=== PATIENT | female | born 1985 | race Caucasian/White ===

== ENCOUNTER 2020-01-18 13:03 | Outpatient (REF) | payer OTHER, SELFPAY ==
--- NOTE | 2020-01-18 09:30 | PAPFT_PTH ---
PATIENT: Karen Anne LOC: [facility]#:[id number] AGE/SX: 34/F ROOM: RE01/18/[address]: Kirstie Mcguire : 1985 BED: DIS: 01/18/2020 SPEC #: [id number] RECD: 01/19/20 12:48 STATUS: BRIAN REQ #: [id number] TAMI: 01/18/20 09:[address]: Kirstie Mcguire DEPT: [facility] Cytology RECD BY: Alissa Lei ENTERED: 01/19/20 12:48 SP TYPE: PAPFT OTHR DR: Unknown,Unknown Tissues: 1 - CX/ENDOCX FOR PAP SMEARS Procedures: PAP THIN PREP/[facility] Screening HPV DNA PROBE Comments: [id number] ([id number] [facility]) (CHLAMYDIA/GC)
[2020-01-23 11:52] LABS: Chlamydia Result Negative (Negative); GC Result Negative (Negative)
== END 2020-01-18 13:23 ==
LOC: NCHCN 13:03
PROVIDERS: Visit Provider Nurse Practitioner Family
DX: Z00.00 Encounter for general adult medical examination without abnormal findings (principal); Z12.4 Encounter for screening for malignant neoplasm of cervix; Z01.419 Encounter for gynecological examination (general) (routine) without abnormal findings; Z11.51 Encounter for screening for human papillomavirus (HPV)
CPT/HCPCS: 87491; 87591; 88142; 87624

== ENCOUNTER 2022-04-01 14:59 | Outpatient (REF) | payer BC, SELFPAY ==
[2022-04-01 21:33] LABS: HCT 44.6 % (36.0-46.0); HGB 14.6 g/dL (11.2-15.7); MCH 29.4 pg (27.0-33.0); MCHC 32.7 % (32.0-36.0); MCV 90 fL (80-95); MPV 11.7 fL (8.0-11.0); Platelet Count 293 10^3/uL (130-400); RBC 4.96 10^6/uL (3.93-5.22); RDW 11.9 % (11.7-14.6); RDW-SD 39.1 fL; WBC 5.64 10^3/uL (4.4-10.8)
[2022-04-01 22:04] LABS: ALT 15 U/L (14-59); AST 14 U/L (15-37); Albumin 4.2 g/dL (3.4-5.0); Alkaline Phosphatase 70 U/L (46-116); Anion Gap 7.4 mmol/L (3-11); BUN 9 mg/dL (7-18); Bilirubin, Total 0.4 mg/dL (0.2-1.0); CO2 29.6 mmol/L (21.0-32.0); CREATININE 0.7 mg/dL (0.55-1.02); Calcium 9.5 mg/dL (8.5-10.1); Calculated LDL 102 mg/dL (<100); Chloride 102 mmol/L (98-107); Cholesterol 212 mg/dL (<200); Estimated GFR 114.16 (mL/min/1.73m2); Glucose 83 mg/dL (74-106); HDL Cholesterol 86 mg/dL (40-60); Potassium 3.9 mmol/L (3.5-5.1); Sodium 139 mmol/L (136-145); Total Protein 7.7 g/dL (6.4-8.2); Triglyceride 120 mg/dL (<150)
[2022-04-01 22:32] LABS: Hemoglobin A1C 5.1 % (<5.7)
== END 2022-04-01 15:00 | disposition home or self-care (01) ==
LOC: NCHCN 14:59
PROVIDERS: Visit Provider Nurse Practitioner Family
DX: Z00.00 Encounter for general adult medical examination without abnormal findings (principal)
CPT/HCPCS: 80053; 80061; 85027; 83036

== ENCOUNTER 2022-09-22 19:32 | Outpatient (CLI) | payer BC, SELFPAY ==
--- NOTE | 2022-09-22 | DI.RAD_ITS ---
Exam(s) XR FINGER LT RING EXAM: XR FINGER LT RING EXAM DATE/TIME: CLINICAL HISTORY: pain in left finger. TECHNIQUE: 2D digital imaging was performed of the left finger. Three views were obtained. PA/AP, oblique, and lateral views were obtained. COMPARISON: None. FINDINGS: BONES: There is an acute oblique fracture through the proximal aspect of the proximal phalanx of the 4th finger. 2-3 mm lateral displacement of the distal fracture is noted. On the oblique images a qu estion of a nondisplaced fracture involving the terminal tuft of the 5th finger. No bony destructive lesion is seen. JOINTS: No dislocation is present. SOFT TISSUE: Soft tissue swelling of the 4th finger. IMPRESSION: 1. Acute mildly displaced fracture of the proximal phalanx of the 4th finger. 2. Question of a nondisplaced fracture of the terminal tuft of the 5th finger. DATA REPOSITORY: RADIATION DOSE DELIVERED:
--- NOTE | 2022-09-22 20:28 | DI.VRAD_ITS ---
PROCEDURE INFORMATION: Exam: XR Left Finger(s) Exam date and time: 09/22/2022 7:47 PM Age: 36 years old Clinical indication: Finger(s); Left; Patient HX: L ring finger pain, caught in dog leash TECHNIQUE: Imaging protocol: Radiologic exam of the left fingers. Views: Minimum 2 views. COMPARISON: No relevant prior studies available. FINDINGS: Bones/joints: There is an oblique minimally displaced fracture through the proximal aspect of the 4th proximal phalanx, with approximately 2 mm distraction and lateral displacement of the distal fracture fragment. No healing callus formation is identified. There are no subluxations. Cannot exclude oblique nondisplaced fracture through the tuft of the 5th distal phalanx on the oblique view. The joint spaces are maintained without degenerative changes. Osseous mineralization is normal. There are no inflammatory osseous erosive changes. Soft tissues: There is mild soft tissue swelling of the proximal aspect of the 4th digit, likely posttraumatic. IMPRESSION: 1. Minimally displaced fracture of the 4th proximal phalanx, as described above. 2. Cannot exclude nondisplaced fracture through the tuft of the 5th distal phalanx. Recommend clinical correlation for focal tenderness. Dictated and Authenticated by: Andi Manuel MD. Ordering:FLOWER FERNANDEZ MD
== END 2022-09-22 19:52 ==
PROVIDERS: Visit Provider Nurse Practitioner Family
DX: S62.616A Displaced fracture of proximal phalanx of right little finger, initial encounter for closed fracture (principal); X58.XXXA Exposure to other specified factors, initial encounter
CPT/HCPCS: 73140

== ENCOUNTER 2022-10-07 12:03 | Outpatient (CLI) | payer BC, SELFPAY ==
--- NOTE | 2022-10-07 11:30 | DI.RAD_ITS ---
Exam(s) XR FINGER LT RING EXAM: XR FINGER LT RING EXAM DATE/TIME: CLINICAL HISTORY: FX F/U. TECHNIQUE: 2D digital imaging was performed of the left finger. Three views were obtained. PA/AP, oblique, and lateral views were obtained. COMPARISON: Comparison is made with prior examinations. FINDINGS: BONES: There is no change in alignment of the fracture involving the proximal phalanx of the left 4th finger. No bony destructive lesion is seen. No new fracture is identified. JOINTS: No dislocation is present. SOFT TISSUE: Normal. IMPRESSION: Stable fracture of the proximal phalanx of the 4th finger. DATA REPOSITORY: RADIATION DOSE DELIVERED:
== END 2022-10-07 12:04 | disposition home or self-care (01) ==
LOC: DIORS 12:03
PROVIDERS: PCP Nurse Practitioner Family; Visit Provider Student in an Organized Health Care Education/Training Program
DX: S62.615A Displaced fracture of proximal phalanx of left ring finger, initial encounter for closed fracture (principal); X58.XXXA Exposure to other specified factors, initial encounter
CPT/HCPCS: 73140

== ENCOUNTER 2022-10-14 14:35 | Outpatient (CLI) | payer BC, SELFPAY ==
--- NOTE | 2022-10-14 14:30 | DI.RAD_ITS ---
Exam(s) XR HAND LT LIMITED EXAM: XR HAND LT LIMITED INDICATION: proximal fx f/u. COMPARISON: CR XR FINGER LT RING from 10/07/2022 TECHNIQUE: 2D digital imaging was performed. Two views. FINDINGS: There has been no change in the alignment of the fracture of proximal phalanx of the 4th finger. No new abnormalities are seen. DATA REPOSITORY: RADIATION DOSE DELIVERED:
== END 2022-10-14 14:36 | disposition home or self-care (01) ==
LOC: DIORS 14:36
PROVIDERS: PCP Nurse Practitioner Family; Referring Provider Nurse Practitioner Family; Visit Provider Student in an Organized Health Care Education/Training Program
DX: S62.615D Displaced fracture of proximal phalanx of left ring finger, subsequent encounter for fracture with routine healing; X58.XXXD Exposure to other specified factors, subsequent encounter
CPT/HCPCS: 73120

== ENCOUNTER 2022-11-04 15:45 | Outpatient (CLI) | payer BC, SELFPAY ==
--- NOTE | 2022-11-04 15:20 | DI.RAD_ITS ---
Exam(s) XR HAND LT LIMITED EXAM: XR HAND LT LIMITED CLINICAL HISTORY: F/U FRACTURE. TECHNIQUE: 2D digital imaging was performed of the left hand. Two views were obtained. PA and late ral views were obtained. COMPARISON: Comparison is made with prior examinations. FINDINGS: BONES: There has been no change in alignment of the fracture involving the proximal phalanx of the 4t h finger. No bony destructive lesion is seen. JOINTS: No dislocation present. SOFT TISSUE: Normal. IMPRESSION: Stable fracture of the proximal phalanx of the 4th finger. DATA REPOSITORY: RADIATION DOSE DELIVERED:
== END 2022-11-04 15:46 | disposition home or self-care (01) ==
LOC: DIORS 15:45
PROVIDERS: PCP Nurse Practitioner Family; Visit Provider Student in an Organized Health Care Education/Training Program
DX: S62.614A Displaced fracture of proximal phalanx of right ring finger, initial encounter for closed fracture (principal); X58.XXXA Exposure to other specified factors, initial encounter
CPT/HCPCS: 73120

== ENCOUNTER 2024-07-25 13:15 | Outpatient (REF) | payer BC, SELFPAY ==
--- NOTE | 2024-07-25 11:20 | PAPFT_PTH ---
PATIENT: Karen Anne LOC: [facility]#:[id number] AGE/SX: 38/F ROOM: RE07/25/[address]: Kirstie Mcguire : 1985 BED: DIS: 07/25/2024 SPEC #: [id number] RECD: 07/25/24 18:13 STATUS: BRIAN HERNADEZ #: [id number] TAMI: 07/25/24 11:[address]: Kirstie Mcguire DEPT: [facility] Cytology RECD BY: Alissa Lei Tissues: 1 - CX/ENDOCX FOR PAP SMEARS Procedures: PAP THIN PREP/[facility] Screening HPV DNA PROBE Comments: [id number] (HPV 16 & 18/45)
[2024-07-25 15:34] LABS: HCT 41.8 % (36.0-46.0); HGB 13.6 g/dL (11.2-15.7); MCH 28.9 pg (27.0-33.0); MCHC 32.5 % (32.0-36.0); MCV 89 fL (80-95); MPV 10.6 fL (8.0-11.0); Platelet Count 290 10^3/uL (130-400); RDW 12.3 % (11.7-14.6); RDW-SD 40.2 fL; WBC 5.49 10^3/uL (4.4-10.8)
[2024-07-25 21:51] LABS: ALT 18 U/L (14-59); AST 17 U/L (15-37); Albumin 3.9 g/dL (3.4-5.0); Alkaline Phosphatase 67 U/L (46-116); BUN 13 mg/dL (7-18); Bilirubin, Total 0.3 mg/dL (0.2-1.0); CREATININE 0.7 mg/dL (0.55-1.02); Calcium 8.9 mg/dL (8.5-10.1); Calculated LDL 85 mg/dL (<100); Chloride 103 mmol/L (98-107); Cholesterol 172 mg/dL (<200); Estimated GFR 112.75 (mL/min/1.73m2); Glucose 85 mg/dL (74-106); HDL Cholesterol 76 mg/dL (>or=50); Potassium 4.2 mmol/L (3.5-5.1); Sodium 139 mmol/L (136-145); Total Protein 7.1 g/dL (6.4-8.2); Triglyceride 56 mg/dL (<150)
== END 2024-07-25 13:16 | disposition home or self-care (01) ==
LOC: NCHCN 13:15
PROVIDERS: PCP Nurse Practitioner Family; Visit Provider Nurse Practitioner Family
DX: Z00.00 Encounter for general adult medical examination without abnormal findings (principal); Z11.51 Encounter for screening for human papillomavirus (HPV); Z01.419 Encounter for gynecological examination (general) (routine) without abnormal findings
CPT/HCPCS: 80053; 80061; 85027; 88142; 87624

== ENCOUNTER 2024-08-29 19:21 | Outpatient (REF) | payer BC, SELFPAY | END 2024-08-29 19:22 | disposition home or self-care (01) | LOC: NCHCN 19:21 | PROVIDERS: PCP Nurse Practitioner Family; Visit Provider Nurse Practitioner Family | DX: R30.0 Dysuria (principal); B96.29 Other Escherichia coli [E. coli] as the cause of diseases classified elsewhere; R82.89 Other abnormal findings on cytological and histological examination of urine | CPT/HCPCS: 87077; 87086; 87186 ==